=== PATIENT | female | born 1985 | race African-American/Black ===

== ENCOUNTER 2017-04-23 16:35 | Emergency (ER) | payer BC ==
[~2017-04-23] VITALS: Ht 172.7 cm; Wt 120.0 kg
[2017-04-23] MEDS ORDERED: IBUPROFEN 800MG TABLET PO ONE (17:30)
[2017-04-23 19:25] VITALS: BP 124/82
== END 2017-04-23 19:33 | disposition home or self-care (01) ==
LOC: ER 16:48
DX: S16.1XXA Strain of muscle, fascia and tendon at neck level, initial encounter (principal); S29.012A Strain of muscle and tendon of back wall of thorax, initial encounter; R03.0 Elevated blood-pressure reading, without diagnosis of hypertension; V89.2XXA Person injured in unspecified motor-vehicle accident, traffic, initial encounter; Y93.89 Activity, other specified; Y92.89 Other specified places as the place of occurrence of the external cause; Y99.8 Other external cause status
CPT/HCPCS: 72070; 72125; 81025; 99284; Z7610